=== PATIENT | male | born 1950 | race Caucasian/White ===

== ENCOUNTER → 2019-03-29 | Outpatient (CLI) | payer OTHER ==
[~2019-03-29] MED LIST: BABY81CH; CALCCHW12; CALCIUM WITH VIT D; COUM1TAB18; COZA50TA18; LEVOXYL25 MCG; NAPR250T; NAPROXIN; PERC5TAB8; PREG50CA; VYTO10TA5; aspirin; cozaar; levoxyl; vytorin
== END ==
LOC: M RAD 09:03
PROVIDERS: ATTEND Orthopaedic Surgery Sports Medicine
DX: M19.011 Primary osteoarthritis, right shoulder (principal)

== ENCOUNTER → 2019-04-28 | Outpatient (CLI) | payer OTHER ==
--- NOTE | 2019-04-28 09:49 | REP ---
Clinical: Preoperative assessment . Comparison: 05/25/2008 . Technique: PA and lateral. Findings: The mediastinum and cardiac silhouette are normal. a 2.1 cm rounded dense lesion is identified in the left upper lung zone which may be slightly increased in size from prior examination and warrants chest CT evaluation. Lung bhardwaj are otherwise clear and without acute consolidation, effusion, or pneumothorax. Skeletal structures are intact. Impression: 1. 2.1 cm rounded dense lesion in the left upper lung zone which may be slightly increased in size when compared to prior examination. Chest CT may be warranted for further investigation as this lesion has previously been diagnosed. 2. No acute mediastinal or pleuroparenchymal process appreciated. Electronically Signed by Asif Brooks MD 04/28/2019 09:41 A
[2019-04-28 11:01] LABS: HEMATOCRIT 47.2 % (42.0-52.0); HEMOGLOBIN 15.2 g/dl (13.5-17.5); MEAN CORPUSCULAR HGB CONC 32.2 g/dl (32.0-36.5); MEAN CORPUSCULAR VOLUME 96.1 fl (80.0-96.0); PLATELET COUNT, AUTOMATED 205 10^3/uL (150-450); RED BLOOD COUNT 4.91 10^6/uL (4.30-6.10); WHITE BLOOD COUNT 6.9 10^3/uL (4.0-10.0)
[2019-04-28 11:19] LABS: INR 1.2; PROTHROMBIN TIME 14.9 SECONDS (11.8-14.0)
[2019-04-28 11:20] LABS: POTASSIUM SERUM 4.4 MEQ/L (3.5-5.1)
--- NOTE | 2019-04-29 07:59 | ECGEPIP ---
[facility] Test Date: 2019-04-28 Pat Name: KAI MENDES Department: Room: - Gender: Male Vehicle Service Attendant: TRISTAN : 1950 Requested By: GAYE GROVE Order Number: [id number] Reading MD: Berny Tamayo Measurements Intervals [place] Rate: 51 P: 66 DE: 209 QRS: -27 QRSD: 110 T: 0 QT: 408 QTc: 377 Interpretive Statements SINUS BRADYCARDIA Borderline first degreee av block BORDERLINE LEFT AXIS DEVIATION MINIMAL VOLTAGE CRITERIA FOR LVH, CONSIDER NORMAL VARIANT Comparison tracing not on file Electronically Signed on 04-29-2019 7:59:27 EST by Berny Tamayo
== END ==
LOC: M LAB 09:24
PROVIDERS: ATTEND Orthopaedic Surgery Sports Medicine
DX: M19.90 Unspecified osteoarthritis, unspecified site (principal)

== ENCOUNTER → 2019-11-08 | Outpatient (CLI) | payer OTHER ==
[~2019-11-08] MED LIST changes: +ECOT81TA5 PO; +FLOM0.4C39 PO; +LOSA100T50 PO; +META28.32 PO; +SIMV40TA20 PO; +SYNT137T7 PO
[2019-11-08 11:13] LABS: HEMATOCRIT 44.8 % (42.0-52.0); MEAN CORPUSCULAR HEMOGLOBIN 31.6 pg (27.0-33.0); MEAN CORPUSCULAR HGB CONC 33.5 g/dl (32.0-36.5); MEAN CORPUSCULAR VOLUME 94.3 fl (80.0-96.0); PLATELET COUNT, AUTOMATED 183 10^3/uL (150-450); RED BLOOD COUNT 4.75 10^6/uL (4.30-6.10)
--- NOTE | 2019-11-08 11:14 | REP ---
Clinical: Right shoulder pain/arthritis. Technique: PA and lateral. Comparison: 04/28/2019. 05/25/2008. Findings: Mediastinum and cardiac silhouette are normal. Lung bhardwaj are relatively clear. A 2 cm calcified density in the left upper lobe is again identified and unchanged. No acute consolidation, effusion, or pneumothorax. Skeletal structures appear grossly intact. Impression: No acute cardiopulmonary process appreciated. Electronically Signed by Asif Brooks MD 11/08/2019 11:06 A
[2019-11-08 11:25] LABS: INR 1.17; PROTHROMBIN TIME 14.6 SECONDS (11.8-14.0)
[2019-11-08 11:33] LABS: ERYTHROCYTE SEDIMENTATION RATE 4 mm/hr (0-20)
[2019-11-08 11:38] LABS: ALBUMIN 3.6 GM/DL (3.2-5.2); ALT/SGPT 32 U/L (12-78); BILIRUBIN,TOTAL 0.5 MG/DL (0.2-1.0); BLOOD UREA NITROGEN 18 MG/DL (7-18); CALCIUM LEVEL 8.6 MG/DL (8.8-10.2); CARBON DIOXIDE LEVEL 27 MEQ/L (21-32); CHLORIDE LEVEL 108 MEQ/L (98-107); CREATININE FOR GFR 1.07 MG/DL (0.70-1.30); GLOMERULAR FILTRATION RATE > 60.0 (>42); GLUCOSE, FASTING 92 MG/DL (70-100); POTASSIUM SERUM 4.3 MEQ/L (3.5-5.1); SODIUM LEVEL 141 MEQ/L (136-145); TOTAL PROTEIN 6.7 GM/DL (6.4-8.2)
--- NOTE | 2019-11-09 06:40 | ECGEPIP ---
[facility] Test Date: 2019-11-08 Pat Name: KAI MENDES Department: Room: - Gender: Male Final Operations Technician: ION : 1950 Requested By: GAYE GROVE Order Number: [id number] Reading MD: Jerman Reed Measurements Intervals [place] Rate: 46 P: AL: 0 QRS: -22 QRSD: 110 T: -8 QT: 421 QTc: 372 Interpretive Statements Sinus bradycardia at 46 bpm First-degree AV block Leftward axis No significant change since prior tracing of 04/28/2019 Electronically Signed on 11-09-2019 6:39:51 EDT by Jerman Reed
== END ==
LOC: M LAB 10:27
PROVIDERS: ATTEND Orthopaedic Surgery Sports Medicine
DX: M13.811 Other specified arthritis, right shoulder (principal)

== ENCOUNTER → 2019-11-19 | Outpatient (CLI) | payer OTHER ==
[~2019-11-19] MED LIST changes: +PERC5TAB12 PO
== END ==
LOC: M LABSMTC 10:11
PROVIDERS: ATTEND Anesthesiology
DX: Z01.818 Encounter for other preprocedural examination (principal); Z11.59 Encounter for screening for other viral diseases

== ENCOUNTER → 2020-11-17 | Outpatient (CLI) | payer OTHER ==
--- NOTE | 2020-11-17 10:55 | REP ---
INDICATION: PRESENCE OF RIGHT ARTIFICAL SHOULDER JOINT. COMPARISON: None. TECHNIQUE: All images are labeled right. FINDINGS: Multiple views show a total right shoulder prosthesis the humeral and glenoid portions of which appear well seated and well approximated without evidence of an acute fracture, dislocation, or subluxation. Chronic changes are seen involving the acromioclavicular joint. There is some evidence of mild periprosthetic lucency involving the upper humeral component of the prosthesis. IMPRESSION: 1. Shoulder prosthesis as described above. If loosening is of clinical concern consider triple phase bone scan. 2. AC joint DJD and other findings as described above. <Electronically signed by Simba Estevez > 11/17/20 [id number]
== END ==
LOC: M SOG 09:47
PROVIDERS: ATTEND Orthopaedic Surgery Sports Medicine
DX: Z96.611 Presence of right artificial shoulder joint (principal)

== ENCOUNTER → 2024-12-29 | Outpatient (CLI) | payer OTHER, MEDICARE ==
[~2024-12-29] MED LIST changes: -FLOM0.4C39 PO; +LOSA100T46 PO; -LOSA100T50 PO; +TAMS-18 PO
== END ==
LOC: M RAD 12-13 10:27
PROVIDERS: ATTEND Orthopaedic Surgery
DX: Z96.652 Presence of left artificial knee joint (principal)